=== PATIENT | female | born 1990 | race American Indian/Alaskan Native ===

== ENCOUNTER 2017-02-10 18:56 | Emergency (ER) | payer SELFPAY ==
--- NOTE | 2017-02-10 19:41 | EDM.PDOC ---
ED HPI GENERAL MEDICAL PROBLEM - General Chief Complaint: Lower Extremity Injury/Pain Stated Complaint: INJURED LEFT ANKLE Time Seen by Provider: 02/10/17 19:25 Source of Information: Reports: Patient History Limitations: Reports: No Limitations - History of Present Illness INITIAL COMMENTS - FREE TEXT/NARRATIVE: Patient is a 26-year-old female presents the ED complaining of left ankle pain with swelling and bruising. Patient states this past Friday while walking out of the bar she slipped on ice causing the injury. She's been walking on the affected ankle with increasing difficulty since. Swelling swelling and bruising have drastically and increased over the past few days. She has no prior history of fracture to the affected ankle. In addition has some pain to the proximal fibula with palpation. Minimal swelling present. She denies any additional complaints. Left Ankle Pain Score (Numeric/FACES): 9 - Related Data Allergies Allergy/AdvReac Type Severity Reaction Status Date / Time No Known Allergies Allergy Verified 02/10/17 19:23 Home Meds: Home Meds . [No Known Home Meds] 02/10/17 [History] Past Medical History - Past Health History Medical/Surgical History: Denies Medical/Surgical History Social & Family History - Family History Family Medical History: Noncontributory - Tobacco Use Smoking Status *Q: Never Smoker - Recreational Drug Use Recreational Drug Use: No Review of Systems - Review of Systems Review Of Systems: ROS reveals no pertinent complaints other than HPI. ED EXAM, GENERAL - Physical Exam Exam: See Below Exam Limited By: No Limitations General Appearance: Alert, WD/WN, Mild Distress Ears: Hearing Grossly Normal Nose: Normal Inspection Throat/Mouth: Normal Voice, No Airway Compromise Neck: Normal Inspection, Supple Respiratory/Chest: No Respiratory Distress, No Accessory Muscle Use Cardiovascular: Normal Peripheral Pulses, Regular Rate, Rhythm Peripheral Pulses: 2+: Posterior Tibial (R), Dorsalis Pedis (R) Extremities: Other (Swelling noted to the lateral/medial/anterior aspect of the ankle with increasing pain with palpation along the lateral malleolus. Decreased range of motion noted secondary to pain. No sensory deficits distally. Pain with compression of the proximal fibula upon palpation. No bruising or swelling noted.) Neurological: Alert, Oriented, CN II-XII Intact, Normal Cognition, No Motor/ Sensory Deficits Psychiatric: Normal Affect, Normal Mood Skin Exam: Warm, Dry Course - Vital Signs Last Recorded V/S: Last Vital Signs Temp 97.7 F 02/10/17 19:19 Pulse 97 02/10/17 19:19 Resp 18 02/10/17 19:19 BP 154/93 H 02/10/17 19:19 Pulse Ox 100 02/10/17 19:19 - Orders/Labs/Meds Orders: Active Orders 24 hr Category Date Time Status Ankle Min 3V Lt [CR] Stat Exams 02/10/17 19:33 Taken Tibia Fibula Lt [CR] Stat Exams 02/10/17 19:33 Taken - Re-Assessments/Exams Free Text/Narrative Re-Assessment/Exam: Order x-ray of the left ankle and also tib-fib. X-ray of the left ankle and tib-fib revealed fracture to the distal aspect of the fibula minimally displaced. No additional bony abnormalities noted. Final interpretation is pending. Will have walking boot applied to the affected ankle. Crutches have been ordered. Discharge instructions as documented. Departure - Departure Time of Disposition: 21:06 Disposition: Home, Self-Care 01 Condition: Good Clinical Impression: Left ankle sprain Qualifiers: Encounter type: initial encounter Involved ligament of ankle: unspecified ligament Qualified Code(s): S93.402A - Sprain of unspecified ligament of left ankle, initial encounter Fracture, fibula Qualifiers: Encounter type: initial encounter Fibula location: distal Fracture type: closed Fracture morphology: unspecified fracture morphology Laterality: left Qualified Code(s): S82.832A - Other fracture of upper and lower end of left fibula, initial encounter for closed fracture - Discharge Information Instructions: Cast or Splint Care, [id number] Referrals: Xavier Guerrero MD [Physician] - Forms: ED Department Discharge Additional Instructions: As discussed x-ray of the left ankle revealed a fracture to the distal aspect of the fibula. No other fractures present. Final interpretation is pending. you will be notified if additional bony abnormalities are noted. Treatment is walking boot and crutches. You are to be nonweightbearing for the next 4-6 weeks. Elevate when able to reduce any swelling and pain. Apply ice to affected area 4-6 times daily, 20 minutes in duration, do not place ice directly on the skin. Take ibuprofen and Tylenol in alternating fashion for discomfort. Follow- up with Dr. Guerrero orthopedic surgeon in the next 7-10 days. Call and make an appointment tomorrow. Return to the ED for any new or worsening symptoms. - My Orders Last 24 Hours: My Active Orders 02/10/17 19:33 Ankle Min 3V Lt [CR] Stat Tibia Fibula Lt [CR] Stat - Assessment/Plan Last 24 Hours: My Active Orders 02/10/17 19:33 Ankle Min 3V Lt [CR] Stat Tibia Fibula Lt [CR] Stat
--- NOTE | 2017-02-11 07:46 | CR ---
Left tibia and fibula: AP and lateral views of the left tibia and fibula were obtained. Comparison: No previous study. Distal fibular fracture is again noted. No proximal fracture is seen within the tibia or fibula. Soft tissue swelling is noted around the ankle. Impression: 1. Lateral malleolar fracture with soft tissue swelling again noted. 2. Left tibia and fibula exam are otherwise unremarkable. Diagnostic code #3
--- NOTE | 2017-02-11 08:03 | CR ---
Left ankle: Three views of the left ankle were obtained. Comparison: No prior study. Ankle mortise is symmetric. Fracture is identified within the distal fibula through the lateral malleolus which remains close to anatomic in alignment. Soft tissue swelling is identified. No additional fracture is appreciated. Impression: 1. Lateral malleolar fracture as described above. 2. Soft tissue swelling. Diagnostic code #3
== END 2017-02-10 21:38 | disposition home or self-care (01) ==
LOC: JD.ED 18:56
DX: S82.62XA Displaced fracture of lateral malleolus of left fibula, initial encounter for closed fracture (principal); S93.402A Sprain of unspecified ligament of left ankle, initial encounter; W00.0XXA Fall on same level due to ice and snow, initial encounter
CPT/HCPCS: 73590-26-LT; 73590-LT; 73610-26-LT; 73610-LT; 99283

== ENCOUNTER 2020-12-18 20:02 | Emergency (ER) | payer MEDICAID ==
--- NOTE | 2020-12-18 20:27 | EDM.PDOC ---
ED HPI GENERAL MEDICAL PROBLEM - General Chief Complaint: Allergic Reaction Stated Complaint: ENT PROBLEM-THROAT COMPLAINT Time Seen by Provider: 12/18/20 20:19 Source of Information: Reports: Patient, RN Notes Reviewed History Limitations: Reports: No Limitations - History of Present Illness INITIAL COMMENTS - FREE TEXT/NARRATIVE: Patient is a 30-year-old female presenting to the emergency department with complaints of allergic reaction. Reports that she was playing in a softball tournament over the weekend in [place]. Reports that she has an allergy to the sun which normally causes her to break out in a rash. She also stayed in a hotel and was using soap from the hotel. Last evening she developed hives to her arms back of her neck, and face. This evening, she notes that her throat felt a little bit itchy so she came to the emergency department for evaluation. Denies any throat tightness or shortness of breath. 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 Psychiatric History: Reports: Addiction Endocrine/Metabolic History: Reports: Obesity/BMI 30+ Hematologic History: Reports: Blood Transfusion(s) - Infectious Disease History Infectious Disease History: Reports: Chicken Pox - Past Surgical History GI Surgical History: Reports: EGD Other GI Surgeries/Procedures: repair of esophageal varices Social & Family History - Family History Family Medical History: No Pertinent Family History - Tobacco Use Tobacco Use Status *Q: Never Tobacco User - Caffeine Use Caffeine Use: Reports: Coffee, Energy Drinks - Recreational Drug Use Recreational Drug Use: No - Living Situation & Occupation Living situation: Reports: Single, with Family Occupation: Unemployed ED ROS ALLERGIC REACTION - Review of Systems Review Of Systems: Comprehensive ROS is negative, except as noted in HPI. ED EXAM GENERAL NO PERIP PULSE - Physical Exam Exam: See Below Exam Limited By: No Limitations General Appearance: Alert, WD/WN, No Apparent Distress Throat/Mouth: Normal Inspection, Normal Lips, Normal Teeth, Normal Gums, Normal Oropharynx, Normal Voice, No Airway Compromise Respiratory/Chest: No Respiratory Distress, Lungs Clear, Normal Breath Sounds, No Accessory Muscle Use, Chest Non-Tender Cardiovascular: Normal Peripheral Pulses, Regular Rate, Rhythm, No Edema, No Gallop, No JVD, No Murmur, No Rub Neurological: Alert, Oriented, CN II-XII Intact, Normal Cognition, Normal Gait, Normal Reflexes, No Motor/Sensory Deficits Psychiatric: Normal Affect, Normal Mood Skin Exam: Other (Scattered hives to bilateral forearms, posterior neck, and face.) Lymphatic: No Adenopathy Course - Vital Signs Last Recorded V/S: Last Vital Signs Temp 96.9 F 12/18/20 20:12 Pulse 60 12/18/20 20:12 Resp 16 12/18/20 20:12 BP 113/71 12/18/20 20:12 Pulse Ox 99 12/18/20 20:12 - Orders/Labs/Meds Meds: Medications Discontinued Medications Generic Name Dose Route Start Last Admin Trade Name Freq PRN Reason Stop Dose Admin Diphenhydramine HCl 50 mg 12/18/20 20:30 Diphenhydramine 50 Mg Cap PO 12/18/20 20:31 ONETIME ONE Prednisone 40 mg 12/18/20 20:29 Prednisone 10 Mg Tab PO 12/18/20 20:30 ONETIME ONE - Re-Assessments/Exams Free Text/Narrative Re-Assessment/Exam: Patient is a 30-year-old female presenting to the emergency department with complaints of hives to her bilateral arms, neck, and face. Reports allergy to the sun and also that she was using a new soap in a hotel this weekend. Rash began yesterday. States her throat felt a little itchy this evening so she came to the ER for evaluation. Denies any throat tightness or shortness of breath. There is no wheezing to auscultation of the lungs. Exam of the oropharynx shows no swelling. Oxygen is 99% on room air. Patient will be started on tapering dose of prednisone. I will provide her with a dose of Benadryl and recommend that she purchase Sabine [id number]. Discharge instructions as documented. Departure - Departure Time of Disposition: 20:33 Disposition: Home, Self-Care 01 Condition: Good Clinical Impression: Rash - Discharge Information *PRESCRIPTION DRUG MONITORING PROGRAM REVIEWED*: No *COPY OF PRESCRIPTION DRUG MONITORING REPORT IN PATIENT RAYA: No Prescriptions: predniSONE [Prednisone] 20 mg PO ASDIRECTED #7 tablet Instructions: Hives Referrals: PCP,None [Primary Care Provider] - Forms: ED Department Discharge Additional Instructions: You were seen in the emergency department today for allergic reaction with hives to forearm, neck, and face as well as itchy throat. You been started on prednisone. Take this as prescribed starting tomorrow evening as you received your first dose in the emergency department. Also recommend that you purchase [id number] Sabine (fexofenadine) and take this daily. If you should experience any new or worsening symptoms, please do not hesitate to return to the emergency department for reevaluation. Sepsis Event Note (ED) - Evaluation Sepsis Screening Result: No Definite Risk - Focused Exam Vital Signs: Vital Signs Temp Pulse Resp BP Pulse Ox 12/18/20 20:12 96.9 F 60 16 113/71 99
[2020-12-18] MEDS ORDERED: predniSONE 10 MG Tab PO ONE (20:29)
[2020-12-18] MEDS ORDERED: diphenhydrAMINE 50 MG Cap PO ONE (20:30)
== END 2020-12-18 21:05 | disposition home or self-care (01) ==
LOC: JD.ED 20:02
DX: L50.9 Urticaria, unspecified (principal); E66.9 Obesity, unspecified; Z68.30 Body mass index [BMI] 30.0-30.9, adult
CPT/HCPCS: 99283; A9270; J7512